=== PATIENT | female | born 1955 | race Caucasian/White ===

== ENCOUNTER → 2018-10-12 | Emergency (ER) | payer OTHER ==
[~2018-10-12] VITALS: Ht 160 cm; Wt 90.7 kg
[~2018-10-12] MED LIST: COZAAR50 MG; LOVASTATIN20 MG; SYNTHROID50 MCG
== END | disposition left against medical advice (07) ==
LOC: ER 19:19
DX: N39.0 Urinary tract infection, site not specified (principal); R31.0 Gross hematuria; R60.0 Localized edema

== ENCOUNTER 2018-10-13 14:51 | Emergency (ER) | payer OTHER ==
[~2018-10-13] VITALS: Ht 160 cm; Wt 90.7 kg
[~2018-10-13 14:51] MED LIST changes: -LOVASTATIN20 MG
[2018-10-13] MEDS ORDERED: LOVASTATIN20 MG (16:17)
== END 2018-10-13 19:49 | disposition home or self-care (01) ==
LOC: ER 14:51
DX: R60.0 Localized edema (principal); N39.0 Urinary tract infection, site not specified

== ENCOUNTER 2019-04-26 07:29 | Day surgery (SDC) | payer OTHER ==
[~2019-04-26 07:29] MED LIST changes: +LOVASTATIN20 MG
== END 2019-04-26 12:30 | disposition home or self-care (01) ==
LOC: AMB-ENDOS 07:29
DX: K57.30 Diverticulosis of large intestine without perforation or abscess without bleeding (principal); K64.8 Other hemorrhoids

== ENCOUNTER 2019-07-30 07:21 | Outpatient (CLI) | payer OTHER | END 2019-07-30 08:00 | disposition home or self-care (01) | LOC: TOM 07:21 | DX: K64.4 Residual hemorrhoidal skin tags (principal); K64.2 Third degree hemorrhoids; L29.0 Pruritus ani; K56.50 Intestinal adhesions [bands], unspecified as to partial versus complete obstruction ==